=== PATIENT | male | born 1965 | race African-American/Black ===

== ENCOUNTER 2017-02-15 21:24 | Emergency (ER) | payer SELFPAY ==
[~2017-02-15] VITALS: Ht 188 cm; Wt 153.0 kg
[2017-02-15] MEDS ORDERED: BACITRACIN ZINC OINT UDPKT TOP ONE (22:15)
[2017-02-16 01:01] VITALS: BP 128/90
== END 2017-02-16 01:03 | disposition home or self-care (01) ==
LOC: ER 21:24
DX: S82.891A Other fracture of right lower leg, initial encounter for closed fracture (principal); I48.91 Unspecified atrial fibrillation; J45.909 Unspecified asthma, uncomplicated; E11.9 Type 2 diabetes mellitus without complications; I10 Essential (primary) hypertension; Z95.0 Presence of cardiac pacemaker; V49.9XXA Car occupant (driver) (passenger) injured in unspecified traffic accident, initial encounter; Y93.89 Activity, other specified; Y92.410 Unspecified street and highway as the place of occurrence of the external cause; Y99.8 Other external cause status
CPT/HCPCS: 29515; 73610; 99284; Z7610

== ENCOUNTER 2025-09-02 02:27 | Inpatient (IN) | payer OTHER ==
[2025-09-02] VITALS (96 sets, daily range): BP systolic 45–262; BP diastolic 35–218; PULSE 60–79; RESP 18–28; TEMP 36.7–38.9; O2SAT 79–100
[~2025-09-02] VITALS: Ht 177.8 cm; Wt 129.9 kg
[2025-09-02] MEDS ORDERED: NOREPINEPHRINE 8 MG in DEXT 5% WATER 242 ML IV PRN (02:30)
[2025-09-02] MEDS ORDERED: FENTANYL 2500MCG/250ML PMX 250 ML IV SCH (02:30)
[2025-09-02 02:55] LABS: BG BASE EXCESS -3.0 mmol/L (-2.0-3.0); BG CARBOXYHEMOGLOBIN 0.7 % (0.5-1.5); BG DEOXYHEMOGLOBIN 0.2 % (0.0-5.0); BG FRACTION INSPIRED OXYGEN 100; BG HCO3 ACT 22.8 mmol/L (21.0-28.0); BG METHEMOGLOBIN 0.3 % (0.5-1.5); BG OXYGEN SATURATION 99.8 % (94.0-98.0); BG OXYHEMOGLOBIN 98.8 % (94.0-98.0); BG PCO2 43.6 mmHg (35.0-48.0); BG PEEP (cmH2O) 5.0 cmH2O; BG PH 7.336 (7.350-7.450); BG PO2 332.7 mmHg (83.0-108.0); BG SAMPLE SITE LEFT RADIAL; BG TIDAL VOLUME(mL) 500.0 mL; BG TOTAL HEMOGLOBIN 12.1 g/dL (13.5-17.5); BG VENT MODE VENT - AC; BG VENT RATE 18.0 set
[2025-09-02] MEDS: PROPOFOL 10MG/ML 100ML 100 ML IV SCH (02:58)
[2025-09-02 03:01] LABS: HEMATOCRIT. 36.2 % (42.0-52.0); HEMOGLOBIN. 11.5 g/dL (14.0-18.0); MEAN PLATELET VOLUME 8.7 fl (7.4-10.4); PLATELET 261 x1000/uL (130-400); RED BLOOD CELL COUNT 3.61 mill/uL (4.7-6.1); RED CELL DISTRIBUTION WIDTH 16.0 % (11.6-14.6)
[2025-09-02 03:09] LABS: INR 1.1
[2025-09-02 03:22] LABS: UREA NITROGEN BLOOD 30 mg/dL (9-23)
[2025-09-02 03:23] LABS: ASPARTATE AMINOTRANSFERASE 83 IU/L (<34); BILIRUBIN DIRECT < 0.1 mg/dL (<=3.0)
[2025-09-02 03:24] LABS: BILIRUBIN TOTAL 0.2 mg/dL (0.1-1.0); CREATININE 7.7 mg/dL (0.6-1.3); PROTEIN TOTAL 7.0 g/dL (6.0-8.3); TROPONIN I HIGH SENSITIVITY 96 ng/L (3.0-53)
[2025-09-02] MEDS: NOREPINEPHRINE 8MG/250ML PMX 250 ML IV PRN (03:28)
[2025-09-02] MEDS: FENTANYL CITRATE 2,500 MCG in SODIUM CHLORIDE 0.9% 200 ML IV PRN (06:02)
[2025-09-02 06:12] LABS: INFLUENZA TYPE A Presumptive Negative (Pres. Neg.)
[2025-09-02 06:14] LABS: INFLUENZA TYPE B Presumptive Negative (Pres. Neg.)
[2025-09-02 06:16] LABS: RESPIRATORY SYNCYTIAL VIRUS Not Detected (Not Detectd)
[2025-09-02] MEDS: LEVETIRACETAM 1000MG PREMIX 100 ML IV ONE (06:19)
[2025-09-02] MEDS: LORAZEPAM 2MG/ML UD SYRINGE IV NR (06:19)
[2025-09-02] MEDS ORDERED: LORAZEPAM 2MG/ML UD SYRINGE IV NR (06:45)
[2025-09-02] MEDS ORDERED: ACETAMINOPHEN 325MG TABLET PO PRN (07:30)
[2025-09-02] MEDS ORDERED: MAGNESIUM/ALUMINUM HYDROXIDE/SIMETHICONE 30ML UDC PO PRN (07:30)
[2025-09-02] MEDS ORDERED: CLONIDINE 0.1MG TABLET PO PRN (07:30)
[2025-09-02] MEDS ORDERED: ONDANSETRON HCL 4MG/2ML INJ IV PRN (07:30)
[2025-09-02] MEDS ORDERED: GUAIFENESIN 200MG/10ML SUGAR FREE UDC PO PRN (07:30)
[2025-09-02] MEDS ORDERED: IPRATROPIUM/ALBUTEROL 0.5-3(2.5)MG/3ML NEB NEB PRN (07:30)
[2025-09-02] MEDS ORDERED: CEFTRIAXONE 1GM/50ML 50 ML IV SCH ×2 (08:00→11:00)
[2025-09-02] MEDS ORDERED: DEXTROSE 50% WATER 50ML SYRINGE IV PRN (08:15)
[2025-09-02] MEDS ORDERED: DOXYCYCLINE 100MG/100ML 100 ML IV SCH (08:30)
[2025-09-02 09:04] LABS: BAND% 2.0 % (1.0-6.0); EOSINOPHILS % MANUAL 1.0 % (0.0-5.0); LYMPHOCYTES % MANUAL 69.0 % (20.0-50.0); MONOCYTES % MANUAL 2.0 % (2.0-8.0); NEUTROPHILS % MANUAL 26.0 % (45.0-75.0); PLATELET ESTIMATE NORMAL
[2025-09-02] MEDS: IPRATROPIUM/ALBUTEROL 0.5-3(2.5)MG/3ML NEB NEB SCH (09:24)
[2025-09-02] MEDS: ENOXAPARIN 40MG/0.4ML SYR SUBCUT SCH (10:14)
[2025-09-02] MEDS: LEVETIRACETAM 1000MG PREMIX 100 ML IV SCH (10:15)
[2025-09-02] MEDS: INSULIN LISPRO 100 UNITS/ML SUBCUT SCH (10:21)
[2025-09-02] MEDS: PROPOFOL 10MG/ML 100ML 100 ML IV PRN (10:53)
[2025-09-02] MEDS: BLOOD SUGAR DIAGNOSTIC STRIP TEST SCH (12:43)
[2025-09-02] MEDS: DOXYCYCLINE 100MG/100ML 100 ML IV SCH (12:46)
[2025-09-02] MEDS: CEFTRIAXONE 1GM/50ML 50 ML IV SCH (12:46)
[2025-09-02 13:54] LABS: VITAMIN B12 SERUM 835 pg/mL (211-911)
[2025-09-02] MEDS ORDERED: HYDR-2988 PO (14:53)
[2025-09-02] MEDS ORDERED: ISOS30TA91 PO (14:53)
[2025-09-02] MEDS ORDERED: SEVE800T8 PO (14:53)
[2025-09-02] MEDS ORDERED: FOLI1TAB87 MT (14:53)
[2025-09-02] MEDS ORDERED: SIME125T7 PO (14:53)
[2025-09-02] MEDS ORDERED: BRIN8DRO2 (14:53)
[2025-09-02] MEDS ORDERED: GATI2.5D8 LEFTEYE (14:53)
[2025-09-02] MEDS ORDERED: LATA2.5D7 RIGHTEYE (14:53)
[2025-09-02] MEDS ORDERED: MIDO10TA3 PO (14:53)
[2025-09-02] MEDS ORDERED: METO-385 PO (14:53)
[2025-09-02] MEDS ORDERED: DOCU-422 PO (14:53)
[2025-09-02] MEDS ORDERED: PRED5DRO22 LEFTEYE (14:53)
[2025-09-02] MEDS ORDERED: APIX5TAB PO (14:53)
[2025-09-02] MEDS ORDERED: AMIO100T4 PO (14:53)
[2025-09-02] MEDS ORDERED: OMEP40CA20 PO (14:53)
[2025-09-02 15:00] LABS: FOLIC ACID (FOLATE) SERUM 13.32 ng/mL (>5.38)
[2025-09-02] MEDS: LACTULOSE 20G/30ML UDC PO SCH (15:51)
[2025-09-02] MEDS: LORAZEPAM 2MG/ML UD SYRINGE IV PRN (15:52)
[2025-09-02] MEDS: ACETAMINOPHEN 325MG TABLET PO PRN (16:14)
[2025-09-02] MEDS ORDERED: FENTANYL 2500MCG/250ML PMX 250 ML IV PRN (16:45)
[2025-09-02] MEDS: MIDAZOLAM 100MG/100ML PMX 100 ML IV PRN (19:06)
[2025-09-03] VITALS (118 sets, daily range): BP systolic 50–162; BP diastolic 39–99; PULSE 61–78; RESP 12–23; TEMP 36.3–37.5; O2SAT 93–100
[2025-09-03 00:07] LABS: CREATINE KINASE MB FRACTION 0.8 ng/mL (0.5-3.6)
[2025-09-03 00:15] LABS: TROPONIN I HIGH SENSITIVITY 1287 ng/L (3.0-53)
[2025-09-03 07:29] LABS: BASOPHILS % 0.5 % (0.0-2.0); EOSINOPHILS % 1.0 % (0.0-5.0); HEMATOCRIT. 36.1 % (42.0-52.0); HEMOGLOBIN. 11.9 g/dL (14.0-18.0); LYMPHOCYTES % 14.0 % (20.0-50.0); MONOCYTES % 10.9 % (2.0-8.0); NEUTROPHILS % 73.6 % (40.0-76.0); RED BLOOD CELL COUNT 3.67 mill/uL (4.7-6.1); RED CELL DISTRIBUTION WIDTH 15.6 % (11.6-14.6)
[2025-09-03] MEDS: PANTOPRAZOLE SODIUM 40 MG/VIAL IV SCH (08:16)
[2025-09-03] MEDS: ASPIRIN 81MG TABLET PO SCH (08:16)
[2025-09-03 08:32] LABS: TROPONIN I HIGH SENSITIVITY 994 ng/L (3.0-53)
[2025-09-03 09:32] LABS: BG BASE EXCESS -1.2 mmol/L (-2.0-3.0); BG CARBOXYHEMOGLOBIN 0.7 % (0.5-1.5); BG DEOXYHEMOGLOBIN 3.6 % (0.0-5.0); BG FRACTION INSPIRED OXYGEN 40; BG HCO3 ACT 24.4 mmol/L (21.0-28.0); BG METHEMOGLOBIN 0.1 % (0.5-1.5); BG OXYGEN SATURATION 96.4 % (94.0-98.0); BG OXYHEMOGLOBIN 95.6 % (94.0-98.0); BG PCO2 44.3 mmHg (35.0-48.0); BG PEEP (cmH2O) 5.0 cmH2O; BG PH 7.359 (7.350-7.450); BG PO2 87.7 mmHg (83.0-108.0); BG SAMPLE SITE LEFT RADIAL; BG TIDAL VOLUME(mL) 500.0 mL; BG TOTAL HEMOGLOBIN 13.1 g/dL (13.5-17.5); BG VENT MODE VENT - PRVC; BG VENT RATE 18.0 set
[2025-09-03 13:44] LABS: PLATELET 214 x1000/uL (130-400)
[2025-09-03 16:51] LABS: CREATINE KINASE MB FRACTION 0.9 ng/mL (0.5-3.6)
[2025-09-03 16:52] LABS: TRIGLYCERIDE 200 mg/dL (0-150); UREA NITROGEN BLOOD 34 mg/dL (9-23)
[2025-09-03 17:05] LABS: CREATININE 10.2 mg/dL (0.6-1.3); PHOSPHORUS 8.7 mg/dL (2.5-4.9)
[2025-09-03] MEDS ORDERED: FENTANYL CITRATE 2,500 MCG in SODIUM CHLORIDE 0.9% 200 ML IV PRN (20:45)
[2025-09-04] VITALS (90 sets, daily range): BP systolic 92–134; BP diastolic 56–73; PULSE 73–89; RESP 15–33; TEMP 36.6–38.1; O2SAT 89–100
[2025-09-04 06:24] LABS: HEMATOCRIT. 31.8 % (42.0-52.0); HEMOGLOBIN. 10.5 g/dL (14.0-18.0); MEAN PLATELET VOLUME 8.8 fl (7.4-10.4); PLATELET 207 x1000/uL (130-400); RED BLOOD CELL COUNT 3.31 mill/uL (4.7-6.1); RED CELL DISTRIBUTION WIDTH 15.6 % (11.6-14.6)
[2025-09-04 06:54] LABS: UREA NITROGEN BLOOD 51.0 mg/dL (9-23)
[2025-09-04] MEDS: BLOOD SUGAR DIAGNOSTIC STRIP TEST SCH (07:50)
[2025-09-04 07:51] LABS: CREATININE 11.4 mg/dL (0.6-1.3)
[2025-09-04] MEDS ORDERED: DEXTROSE 50% WATER 50ML SYRINGE IV ONE (08:45)
[2025-09-04] MEDS ORDERED: INSULIN REGULAR (HUMULIN R) 1000UNITS/10ML VIAL IV ONE (08:45)
[2025-09-04] MEDS ORDERED: SODIUM BICARBONATE 8.4% 50MEQ/50ML VIAL IV ONE (08:45)
[2025-09-04] MEDS ORDERED: CALCIUM CHLORIDE 1GM/10ML SYR IV ONE (08:45)
[2025-09-04 09:24] LABS: BG BASE EXCESS -2.1 mmol/L (-2.0-3.0); BG CARBOXYHEMOGLOBIN 0.2 % (0.5-1.5); BG DEOXYHEMOGLOBIN 2.7 % (0.0-5.0); BG HCO3 ACT 21.5 mmol/L (21.0-28.0); BG METHEMOGLOBIN 0.0 % (0.5-1.5); BG OXYGEN SATURATION 97.3 % (94.0-98.0); BG OXYHEMOGLOBIN 97.1 % (94.0-98.0); BG PCO2 32.7 mmHg (35.0-48.0); BG PH 7.435 (7.350-7.450); BG PO2 94.4 mmHg (83.0-108.0); BG TOTAL HEMOGLOBIN 11.2 g/dL (13.5-17.5)
[2025-09-04 09:28] LABS: BG PEEP (cmH2O) 5.0 cmH2O
[2025-09-04] MEDS: SODIUM ZIRCONIUM CYCLOSILICATE 10GM/PACKET PO NR (09:30)
[2025-09-04 09:44] LABS: BG VENT MODE VENT - PRVC
[2025-09-04 09:45] LABS: BG FRACTION INSPIRED OXYGEN 40; BG SAMPLE SITE LEFT RADIAL; BG TIDAL VOLUME(mL) 500 mL; BG VENT RATE 18 set
[2025-09-04] MEDS ORDERED: DEXTROSE 50% WATER 50ML SYRINGE IV PRN (11:15)
[2025-09-04 12:13] LABS: HEPATITIS A AB IGM NEGATIVE (Negative); HEPATITIS B CORE AB IGM NEGATIVE (Negative)
[2025-09-04 12:14] LABS: HEPATITIS C AB NON REACTIVE (Neg) (Negative)
[2025-09-04 13:18] LABS: BAND% 1.0 % (1.0-6.0); LYMPHOCYTES % MANUAL 9.0 % (20.0-50.0); MONOCYTES % MANUAL 5.0 % (2.0-8.0); NEUTROPHILS % MANUAL 85.0 % (45.0-75.0)
[2025-09-04 13:19] LABS: PLATELET ESTIMATE NORMAL
[2025-09-04] MEDS ORDERED: MORPHINE SULFATE 250 MG in DEXT 5% WATER 250 ML IV PRN (15:00)
[2025-09-04] MEDS: NOREPINEPHRINE 8MG/250ML PMX 250 ML IV PRN (17:08)
[2025-09-04] MEDS: INSULIN LISPRO 100 UNITS/ML SUBCUT SCH (17:15)
[2025-09-05] VITALS (64 sets, daily range): BP systolic 81–185; BP diastolic 3–93; PULSE 70–96; RESP 15–34; TEMP 36.114–37.3; O2SAT 99–100
[2025-09-05 10:20] LABS: HEMATOCRIT. 30.2 % (42.0-52.0); HEMOGLOBIN. 10.0 g/dL (14.0-18.0); MEAN PLATELET VOLUME 8.6 fl (7.4-10.4); PLATELET 189 x1000/uL (130-400); RED BLOOD CELL COUNT 3.13 mill/uL (4.7-6.1); RED CELL DISTRIBUTION WIDTH 15.4 % (11.6-14.6)
[2025-09-05 10:39] LABS: UREA NITROGEN BLOOD 41 mg/dL (9-23)
[2025-09-05] MEDS ORDERED: MORPHINE SULFATE 2 MG/ML INJ (NOT FOR IM USE) IV ONE (11:00)
[2025-09-05 11:26] LABS: CREATININE 8.8 mg/dL (0.6-1.3)
[2025-09-05 11:27] LABS: PHOSPHORUS 10.3 mg/dL (2.5-4.9)
[2025-09-05] MEDS ORDERED: CEFTRIAXONE 1GM/50ML 50 ML IV SCH (12:00)
[2025-09-05] MEDS: MORPHINE SULFATE 250 MG in DEXT 5% WATER 250 ML IV PRN (12:35)
[2025-09-06 09:18] LABS: BAND% 3.0 % (1.0-6.0); EOSINOPHILS % MANUAL 1.0 % (0.0-5.0); LYMPHOCYTES % MANUAL 3.0 % (20.0-50.0); MONOCYTES % MANUAL 10.0 % (2.0-8.0); NEUTROPHILS % MANUAL 83.0 % (45.0-75.0); PLATELET ESTIMATE NORMAL
== END 2025-09-05 14:06 | DRG 871 ==
LOC: ER 02:27 → CVICU 06:39 → EDBEDREQ 06:43 → EDBEDREQTM 06:43 → ENRESERV 07:22
PROVIDERS: ADMIT Internal Medicine; ATTEND Internal Medicine
PROC: 0BH17EZ Insertion of Endotracheal Airway into Trachea, Via Natural or Artificial Opening (ICD-10-PCS; principal; 2025-09-02)
PROC: 5A1945Z Respiratory Ventilation, 24-96 Consecutive Hours (ICD-10-PCS; 2025-09-02)
PROC: 4B02XTZ Measurement of Cardiac Defibrillator, External Approach (ICD-10-PCS; 2025-09-02)
PROC: 06HY33Z Insertion of Infusion Device into Lower Vein, Percutaneous Approach (ICD-10-PCS; 2025-09-02)
PROC: B54CZZA Ultrasonography of Left Lower Extremity Veins, Guidance (ICD-10-PCS; 2025-09-02)
PROC: 4A00X4Z Measurement of Central Nervous Electrical Activity, External Approach (ICD-10-PCS; 2025-09-04)
PROC: 5A1D70Z Performance of Urinary Filtration, Intermittent, Less than 6 Hours Per Day (ICD-10-PCS; 2025-09-05)
DX: A41.9 Sepsis, unspecified organism (principal); I21.4 Non-ST elevation (NSTEMI) myocardial infarction; I50.23 Acute on chronic systolic (congestive) heart failure; N18.6 End stage renal disease; R65.21 Severe sepsis with septic shock; J96.01 Acute respiratory failure with hypoxia; J69.0 Pneumonitis due to inhalation of food and vomit; R57.0 Cardiogenic shock; I46.9 Cardiac arrest, cause unspecified; G93.1 Anoxic brain damage, not elsewhere classified; I13.2 Hypertensive heart and chronic kidney disease with heart failure and with stage 5 chronic kidney disease, or end stage renal disease; I42.0 Dilated cardiomyopathy; G25.3 Myoclonus; I48.0 Paroxysmal atrial fibrillation; I47.20 Ventricular tachycardia, unspecified; Z99.2 Dependence on renal dialysis; I49.01 Ventricular fibrillation; R56.9 Unspecified convulsions; E11.22 Type 2 diabetes mellitus with diabetic chronic kidney disease; J45.909 Unspecified asthma, uncomplicated; D53.9 Nutritional anemia, unspecified; E87.20 Acidosis, unspecified; E72.20 Disorder of urea cycle metabolism, unspecified; Z20.822 Contact with and (suspected) exposure to COVID-19; Z66 Do not resuscitate; E87.5 Hyperkalemia; E11.65 Type 2 diabetes mellitus with hyperglycemia; E11.36 Type 2 diabetes mellitus with diabetic cataract; E78.5 Hyperlipidemia, unspecified; E83.41 Hypermagnesemia; I44.7 Left bundle-branch block, unspecified; Z51.5 Encounter for palliative care; Z82.49 Family history of ischemic heart disease and other diseases of the circulatory system; Z95.810 Presence of automatic (implantable) cardiac defibrillator
CPT/HCPCS: 31500; 31720; 36415; 36600; 71045; 80048; 80076; 80307; 80320; 82140; 82375; 82550; 82553; 82607; 82728; 82746; 82805; 82962; 83036; 83540; 83550; 83605; 83735; 83880; 84100; 84145; 84443; 84478; 84484; 85025; 85379; 86705; 86709; 86850; 86900; 87070; 87340; 87420; 87426; 87804; 90935; 93005; 93306; 93970; 94002; 94003; 94070; 94640; 94664; 95816; 99291; A4606; J0696; J1650; J1815; J1953; J2060; J2250; J2470; J2704; J3010; J3490; J7050; G0480